=== PATIENT | male | born 1945 | race Hispanic/Latino ===

== ENCOUNTER → 2018-05-25 | Outpatient (CLI) | payer OTHER ==
[~2018-05-25] MED LIST: LISI10TA7 PO; PREDAOS
== END | disposition home or self-care (01) ==
LOC: SHCH 11:21
PROVIDERS: ATTEND Internal Medicine Cardiovascular Disease
DX: I11.9 Hypertensive heart disease without heart failure (principal)
CPT/HCPCS: 93306

== ENCOUNTER → 2018-05-25 | Outpatient (CLI) | payer OTHER | END | disposition home or self-care (01) | LOC: OIH 13:13 | PROVIDERS: ATTEND Internal Medicine Cardiovascular Disease | DX: Z13.6 Encounter for screening for cardiovascular disorders (principal) | CPT/HCPCS: 75571 ==

== ENCOUNTER → 2018-07-26 | Outpatient (CLI) | payer OTHER | END | disposition home or self-care (01) | LOC: RAH 13:28 | PROVIDERS: ATTEND Family Medicine | DX: N28.1 Cyst of kidney, acquired (principal); I70.90 Unspecified atherosclerosis; K57.90 Diverticulosis of intestine, part unspecified, without perforation or abscess without bleeding; K76.0 Fatty (change of) liver, not elsewhere classified; M47.815 Spondylosis without myelopathy or radiculopathy, thoracolumbar region | CPT/HCPCS: 74176 ==

== ENCOUNTER → 2018-08-09 | Outpatient (CLI) | payer OTHER ==
[~2018-08-09] VITALS: Ht 175.3 cm; Wt 99.8 kg
[~2018-08-09] MED LIST changes: +REGADENOSON 0.4 MG/5 ML PF SYG IVP SCH
== END | disposition home or self-care (01) ==
LOC: SHCH 08:35
PROVIDERS: ATTEND Internal Medicine Cardiovascular Disease
DX: I25.10 Atherosclerotic heart disease of native coronary artery without angina pectoris (principal)
CPT/HCPCS: 78452; 93017; 96374; A9500 ×2; J2785

== ENCOUNTER → 2024-08-24 | Outpatient (CLI) | payer MEDICARE ==
[~2024-08-24] MED LIST changes: +LISI10TA24 PO; -LISI10TA7 PO; -REGADENOSON 0.4 MG/5 ML PF SYG IVP SCH
--- NOTE | 2024-08-26 12:03 | HMCSR ---
APPROVED REPORT EXAM: Two-dimensional and M-mode echocardiogram with Doppler and color Doppler. INDICATION ICD: R06.00 Dyspnea 2D Dimensions RVDd3.4 cmLVEF(%)55.9 (>50%)LVED Vol(simp.)98.0 mL IVSd1.2 (0.7-1.1cm)FS(%)29 %LVES Vol(simp.)38.0 mL LVDd4.8 (3.8-5.6cm)Ao Root(2D)3.7 (2.0-3.7cm)LVEF(%, simp.)61 % PWd1.1 (0.7-1.1cm)LVOT diam2.1 (1.8-2.4cm)LA ESV INDEX (BP)20.54 mL/m2 LVDs3.4 (2.5-4.0cm) Aortic Valve AoV Vmax1.4 m/Mena Peak GR7.4 mmHgLVOT Vmax1.0 m/s AoV VTI0.3 mAo Mean GR3.6 mmHgLVOT VTI0.20 m SIERRA (VMAX)2.6 cm2AVA (VTI) 2.6 cm2 Mitral Valve MV E Vmax57.1 cm/sDECEL Seri850 ms MV A Vmax88.6 cm/sP 1/2 T98 ms E/A ratio0.6MVA (PHT)2.2 cm2 TDI E/E' Medial9.9E/E' Lateral7.6 Pulmonary Valve PV Vmax1.5 m/sPV VTI0.29 mPV Mean GR4 mmHg PV Peak GR9.0 mmHg Tricuspid Valve TR Vmax2.6 m/sRAP (EST) 8 uwAkMUBR63.5 mmHg TR Peak GR27.5 mmHg Left Ventricle The left ventricle structure and function is normal. Paradoxical septal motion consistent with conduc tion abnormality. There is mild concentric left ventricular hypertrophy. LVEF is 55-60%. Grade 1 freeman tolic dysfunction Right Ventricle The right ventricle is normal size. The right ventricular systolic function is normal. Atria The left atrium size is normal. The right atrium size is normal. Aortic Valve Aortic valve is trileaflet. Aortic valve leaflets are sclerotic but open well. Trace aortic regurgita tion. There is no aortic valvular stenosis. Mitral Valve Mitral valve leaflets appear normal. Mitral regurgitation is trace. Tricuspid Valve The tricuspid valve leaflets appear normal. There is trace to mild tricuspid regurgitation. Right refugio tricular systolic pressure is estimated at 30-40 mmHg. Pulmonic Valve Pulmonic valve is not well visualized. Great Vessels The aortic root is normal in size. IVC is not well visualized. Pericardium No pericardial effusion. Conclusion There is mild concentric left ventricular hypertrophy. LVEF is 55-60%. Grade 1 diastolic dysfunction Paradoxical septal motion consistent with conduction abnormality. Aortic valve is trileaflet. Aortic valve leaflets are sclerotic but open well.
== END | disposition home or self-care (01) ==
LOC: SHCH 08:13
PROVIDERS: ATTEND Internal Medicine Cardiovascular Disease
DX: I08.2 Rheumatic disorders of both aortic and tricuspid valves (principal); R06.00 Dyspnea, unspecified
CPT/HCPCS: 93306

== ENCOUNTER → 2024-08-26 | Outpatient (CLI) | payer MEDICARE ==
[2024-08-26] MEDS: REGADENOSON 0.4 MG/5 ML PF SYG IVP ONE (10:38)
--- NOTE | 2024-08-26 16:55 | HMCSR ---
APPROVED REPORT Height: 5 ft 9in Weight: 226 lbs TEST INDICATIONS CAD The imaging protocol used to acquire images was Rest Tc-99m/stress Tc-99m 1 day Consent: The procedure was explained and understood by the patient. Informerd consent was witnessed Em Diaz RN First, low dose rest was performed then high dose stress. RESTING DATA: The resting ekg shows: NSR Rest SPECT myocardial perfusion imaging was performed in supine position 66 minutes following the int ravenous injection of 12.0 mCi of Tc-99 Sestamibi. Time of rest injection: 08:43: Date: 08/26/2024 Time of rest imagin:49: Date: 08/26/2024 PHARMACOLOGIC STRESS: Pharmacologic stress test was performed by injecting regadenoson 0.4 mg IV push followed by the intra venous injection of 33.0 mCi of Tc-99 Sestamibi. Time of stress injection: 10:18: Date: 08/26/2024 Time of stress imagin:38: Date: 08/26/2024 Heart Rate at time of stress injection: 67 bpm. Gated Stress SPECT was performed 80 minutes after stress injection. The images were gated to evaluate regional wall motion and calculate left ventricular ejection fracti on. STRESS DETAILS Reason for Termination: Infusion complete Stress Symptoms: Dyspnea Max HR Achieved: 78 bpm % of APMHR Achieved: 55 Max Blood Pressure: 145/84 mmHg Stress ECG: NSR Conclusion No ischemia No infarct LV ejection fraction of 65% Normal LV wall motion Normal LV size at rest and stress No evidence of increased lung uptake
== END | disposition home or self-care (01) ==
LOC: SHCH 08:23
PROVIDERS: ATTEND Internal Medicine Cardiovascular Disease
DX: I25.10 Atherosclerotic heart disease of native coronary artery without angina pectoris (principal); R06.00 Dyspnea, unspecified
CPT/HCPCS: 78452; 93017; J2785; A9500 ×2